=== PATIENT | male | born 1990 | race Caucasian/White ===

== ENCOUNTER 2022-03-26 04:48 | Emergency (ER) | payer OTHER, SELFPAY ==
[2022-03-26 04:50] VITALS: BP 159/90; PULSE 85; RESP 18; TEMP 35.9; O2SAT 99; BMI 27.9
[2022-03-26 05:46] LABS: Mucous, Urine 0 SEEN /hpf (<or=2+); Red Blood Cells-Urine 0 SEEN /hpf (0-5); Squamous Epithelial Cells - UA 0 SEEN /hpf (0-5)
[2022-03-26 05:55] LABS: Color, Urine Yellow (Yellow); Glucose, Dipstick Normal (Normal); Leukocyte Esterase-Dipstick 25 /ul (Negative); Nitrite-Dipstick Negative (Negative); Occult Blood-Urine 25 /ul (Negative); Protein-Dipstick 30 mg/dl (Negative); Specific Gravity, Urine 1.025 (1.002-1.030); Urine Bilirubin Dipstick Negative (Negative); Urine Clarity Clear (Clear); Urine Urobilinogen Normal (Normal)
[2022-03-26 06:08] LABS: Ketone-Dipstick 150 mg/dl (Negative)
[2022-03-26 06:18] LABS: Bacteria RARE /hpf (None Seen); White Blood Cells 0-5 SEEN /hpf (0-5)
--- NOTE | 2022-03-26 06:31 | EDS_ITS ---
HPI History of Present Illness Chief Complaint: Other, Pain/Inj Narrative Narrative: Patient is a 32-year-old male with no reported significant past medical history. He reports for the past 2 weeks he has been having pain located mainly in his rectum. He states he has been pain with defecation but he denies any rectal discharge or dysuria. He states he does not have any fevers or chills. He states that he was able to control the pain initially with just a little bit of ibuprofen once a day but over the past few days the pain has been increasing and secondary to this he comes in for evaluation. PFSH PFSH Medical History no medical history no medical history Home Medications oxycodone-acetaminophen 5 mg-325 mg tablet (Percocet) 1 tab PO Q6H PRN pain 3 days #12 tabs 03/26/22 [Rx Last Taken Unknown] sulfamethoxazole 800 mg-trimethoprim 160 mg tablet (Bactrim DS) 1 tab PO BID 28 days #56 tabs 03/26/22 [Rx Last Taken Unknown] Allergy/AdvReac Type Severity Reaction Status Date / Time No Known Allergies Allergy Verified 03/26/22 06:37 Surgical History no surgical history Social History Smoking Status: Never smoker [facility] ED Constitutional Constitutional ED: Denies chills or fever(s) ENT ENT ED: Denies sore throat Cardiovascular Cardiovascular: Denies chest pain Respiratory/Chest Respiratory/Chest: Denies cough or dyspnea Gastrointestinal Gastrointestinal: Denies abdominal pain, diarrhea, nausea or vomiting Genitourinary Genitourinary ED: Reports other Details: Positive rectal pain ; Denies dysuria or urinary frequency Musculoskeletal Musculoskeletal: Denies myalgias Integumentary Denies rash Neurologic Neurologic: Denies headache(s) Hematologic/Lymphatic Hematologic/Lymphatic: Denies easy bleeding or easy bruising EXAM Physical Exam Const Vital Signs: 03/26/22 04:50 Temperature 96.6 F L Temperature Source Oral Pulse Rate 85 Respiratory Rate 18 Blood Pressure 159/90 H Blood Pressure Mean 113 Pulse Ox 99 Oxygen Delivery Method Room Air Positive well nourished and well developed General Appearance ED: well developed Eyes PERRL and EOMs intact bilaterally Neck supple Resp normal respiratory effort and clear to auscultation bilaterally Cardio regular rate and regular rhythm GI non-distended GI Narrative: There is mild suprapubic tenderness with palpation noted without voluntary guarding or rigidity Auscultation: normoactive bowel sounds Palpation: soft Narrative: No external hemorrhoid or anal fissure noted. Rectal tone is normal. No internal abscess or hemorrhoid noted either. There is pain on palpation of the prostate and he does feel boggy in nature. No rectal discharge noted Extremity normal to inspection Neuro oriented x3 and CN's II-XII intact bilaterally Sensorium / Orientation: alert Psych mental status grossly normal Skin no rashes or lesions noted Skin Narrative: No obvious abscess or cellulitis noted along the gluteal tissue or rectal exam MDM MDM MDM Narrative Medical decision making narrative: Patient presented to the ER hypertensive but otherwise afebrile stable vitals. He reported pain in his rectum for the past 2 weeks which was slowly worsening. He denies any discharge but there was pain with defecation. On exam he does not have an external or internal hemorrhoid there is no anal fissure and no physical exam changes to suggest a perirectal abscess. He does have pain with palpation of his prostate and does feel enlarged and boggy. His urine shows some blood and leukocyte esterase concerning for developing prostate infection. Therefore at this time he will be placed on the 28-day course of Bactrim and can follow-up with urology. Patient agrees to return if he has worsening symptoms or any further concerns Lab Data Attestation: I reviewed the patient's lab results. Labs: Laboratory Results - last 24 hr 03/26/22 05:40 Urine Color Yellow Urine Clarity Clear Urine pH 6.0 Ur Specific [place] 1.025 Urine Protein 30 H Urine Glucose (UA) Normal Urine Ketones 150 A* Urine Occult Blood 25 H Urine Nitrite Negative Urine Bilirubin Negative Urine Urobilinogen Normal Ur Leukocyte Esterase 25 H Urine RBC 0 SEEN Urine WBC 0-5 SEEN Ur Squamous Epith Cells 0 SEEN Urine Bacteria RARE Urine Mucus 0 SEEN Discharge Plan Triage Chief Complaint: Other, Pain/Inj ED Provider: Erickson Lagunas Dx/Rx/DC Orders Clinical Impression: Acute prostatitis Instructions: ED Prostatitis Prescriptions: New sulfamethoxazole-trimethoprim [Bactrim DS] 800-160 mg tablet 1 tab PO BID 28 Days Qty: 56 0RF oxycodone-acetaminophen [Percocet] 5-325 mg tablet 1 tab PO Q6H PRN (Reason: pain) 3 Days Qty: 12 0RF Primary Care Provider: Care Physician,No Primary Referrals: Scott Brand MD [Med Staff - Active Staff] - Care Physician,No Primary [Primary Care Provider] - Activity Restrictions/Additional Instructions: Your history and exam today are most consistent with prostatitis. Take the medication as directed and follow-up with urology if you have any further concerns or worsening of symptoms please return to the ER for repeat evaluation Disposition Disposition: Home, Self Care
[2022-03-26] MEDS: oxyCODONE 5 MG Tablet 10 MG PO (06:35)
[2022-03-26] MEDS: Smz/Tmp Ds Tablet 1 TABLET PO (06:35)
[2022-03-26 06:41] VITALS: RESP 16
== END 2022-03-26 06:41 | disposition home or self-care (01) ==
PROVIDERS: Emergency Provider Emergency Medicine; Visit Provider Emergency Medicine
DX: N41.9 Inflammatory disease of prostate, unspecified (principal); K62.89 Other specified diseases of anus and rectum
CPT/HCPCS: 81001; 99282

== ENCOUNTER 2022-03-27 15:19 | Emergency (ER) | payer SELFPAY ==
[2022-03-27 15:20] VITALS: BP 136/89; PULSE 97; RESP 18; TEMP 36.6; O2SAT 99; BMI 28.7
[2022-03-27 15:22] VITALS: BP 136/89; PULSE 97; RESP 18; TEMP 36.6; O2SAT 99
--- NOTE | 2022-03-27 15:42 | CT_ITS ---
STUDY: CT PELVIS WITH CONTRAST REASON FOR EXAM: Male, 32 years old. left barry-rectal abscess or cyst RADIATION DOSAGE (If Supplied By Facility): CTDIvol = ( ) mGy, DLP = ( ) mGycm TECHNIQUE: Transaxial imaging of the pelvis was performed without oral contrast. IV 100mL Isovue-370 was administered intravenously. Individualized dose optimization techniques were used for this CT. COMPARISON: None. FINDINGS: Normal urinary bladder. Normal visualized small intestine. Normal visualized colon. 3 cm thick-walled the fluid collection within the medial aspect of the left buttock adjacent to the anus consistent with a perirectal abscess. There is no pelvic fluid. There is no pelvic lymphadenopathy or mass lesion. Normal visualized pelvic arteries. Normal abdominal wall. Normal osseous structures. CT/Pelvis WITH IV Contrast IMPRESSION: 3 cm left-sided perirectal abscess. Electronically Signed: Russell Costello MD at 17:04 EST ,
--- NOTE | 2022-03-27 15:44 | EDS_ITS ---
HPI History of Present Illness Chief Complaint: Other, Pain/Inj Detail of Chief Complaint: Left buttock and perirectal pain Informant: patient Onset/Context/Timing Onset: Days and Weeks Context: Gradual Onset Timing: Continuous Current Severity: Moderate Maximum Severity: Moderate Narrative Narrative: 32-year-old male no significant past medical history. Said for 1 to 2 weeks he has had pain near his buttocks. And rectum. Seen the emergency department in light of 03/26 thought possibly to have prostatitis. And started on Bactrim for 2 weeks. States now he has noticed Left buttock and shanell-anal pain. Denies any fever. No dysuria. He did have a pilonidal abscess years ago that ruptured on its own. He is not diabetic. Prior similar symptoms: Yes Recent Illness/Hospitalization: No PFSH PFSH Medical History no medical history no medical history Home Medications oxycodone-acetaminophen 5 mg-325 mg tablet (Percocet) 1 tab PO Q6H PRN pain 3 days #12 tabs 03/26/22 [Rx Last Taken Unknown] sulfamethoxazole 800 mg-trimethoprim 160 mg tablet (Bactrim DS) 1 tab PO BID 28 days #56 tabs 03/26/22 [Rx Last Taken Unknown] cephalexin 500 mg capsule 500 mg PO Q6 #40 caps 03/27/22 [Rx Last Taken Unknown] Allergy/AdvReac Type Severity Reaction Status Date / Time No Known Allergies Allergy Verified 03/27/22 15:19 Social History Smoking Status: Never smoker ROS ROS ED ROS Narrative Left buttock and perirectal pain. Review of Systems ROS Unobtainable: Denies due to encephalopathy Constitutional Constitutional ED: Denies fever(s) Eyes Eyes: Denies blurry vision ENT ENT ED: Denies ear pain Cardiovascular Cardiovascular: Denies chest pain Respiratory/Chest Respiratory/Chest: Denies cough or dyspnea Gastrointestinal Gastrointestinal: Denies abdominal pain, constipation, diarrhea, melena, nausea or vomiting Genitourinary Genitourinary ED: Denies dysuria or hematuria Musculoskeletal Musculoskeletal: Denies arthralgias Integumentary Reports other Details: Perianal pain on the left Neurologic Neurologic: Denies headache(s) Psychiatric Psychiatric: Denies anxiety or depression Endocrine Endocrinology: Denies cold intolerance Hematologic/Lymphatic Hematologic/Lymphatic: Reports none Allergic/Immunologic Allergic/Immunologic ED: Denies mouth swelling or tongue swelling EXAM Physical Exam Narrative Exam Narrative: 32-year-old male no acute distress. Vital signs stable afebrile. He does not look septic or toxic. H EENT exam unremarkable. Lungs clear to auscultation. Heart regular rhythm no murmur. Abdomen soft nontender. Normal bowel sounds no peritoneal signs. Buttock exam he is got a fullness tenderness to his left perianal area that could be a perianal abscess or cyst. On rectal exam he is got no rectal tenderness or prostate tenderness. I do not think this is prostatitis which was previously thought on another exam. Moving all 4 extremities. Neurologic exam normal. Const Vital Signs: 03/27/22 15:20 03/27/22 15:22 03/27/22 15:51 Temperature 98 F 98 F Temperature Source Temporal Temporal Pulse Rate 97 97 Respiratory Rate 18 18 Respiratory Effort Normal Non-Labored Respiratory Pattern Normal Blood Pressure 136/89 H 136/89 H Blood Pressure Mean 104 104 Pulse Ox 99 99 Oxygen Delivery Method Room Air Room Air 03/27/22 16:22 Temperature 98.2 F Temperature Source Temporal Pulse Rate 89 Respiratory Rate 16 Respiratory Effort Respiratory Pattern Blood Pressure 138/88 H Blood Pressure Mean 104 Pulse Ox 98 Oxygen Delivery Method Room Air Positive well nourished and well developed; Negative for obese, cachectic, contractures or unkempt General Appearance ED: well developed and NAD; Negative for unkempt, cachectic, contractures, cyanotic or diaphoretic Nutritional Appearance: Negative for cachectic or obese HEENT Reports moist mucous membranes; Denies dry mucous membranes Negative for trauma or tenderness Mouth ED: No dry mucous membranes Mouth: No dry mucous membranes Eyes PERRL and EOMs intact bilaterally General Eye ED: Negative for pale conjunctiva or scleral icterus Neck no lymphadenopathy, supple and no JVD General: Negative for tenderness Lymph Lymphatic: Negative for other Chest Wall inspection of chest normal and palpation of chest normal Chest: Negative for other Resp normal respiratory effort and clear to auscultation bilaterally Effort and Inspection: Negative for retractions Auscultation: Negative for rales, rhonchi or wheezes Cardio regular rate, regular rhythm, S1 normal heart sound, S2 normal heart sound and no murmurs Palpation: Negative for palpable S3 Rate: Negative for bradycardia Rhythm: Negative for abnormal rhythm GI normal to inspection, nondistended, normoactive bowel sounds, non-tender, non- distended and no masses Inspection: Negative for abdominal distention Auscultation: normoactive bowel sounds; Negative for hyperactive bowel sounds Palpation: soft; Negative for tender or guarding Rectal Exam: normal sphincter tone, prostate normal, tenderness and other Other Details: Left very medial buttock perianal tenderness. Consistent with either perianal abscess or cyst. Prostate is nontender. The rectum is nontender. Back/Spine no CVA tenderness General Back: Negative for CVA tenderness Cervical Spine: Negative for cervical spine tenderness Thoracic Spine / Upper Back: Negative for thoracic spinal tenderness Lumbar Spine / Lower Back: Negative for lumbar spinal tenderness Extremity normal to inspection General Extremety ED: Negative for edema or tenderness General Extremity: Negative for edema Neuro oriented x3 and CN's II-XII intact bilaterally Sensorium / Orientation: alert; Negative for orientation impaired, lethargic or stuporous Motor Exam: strength 5/5 throughout; Negative for general weakness Psych mental status grossly normal Appearance: Negative for unkempt Attitude: No agitated Mood & Affect: Negative for depressed, anxious or tearful Skin no rashes or lesions noted, no wounds and skin turgor normal Lesions: No lesion noted Rashes: No rashes noted Trauma: Negative for abrasion Wounds: Negative for wounds noted MDM MDM MDM Narrative Medical decision making narrative: 32-year-old male concern for a possible left perianal abscess or cyst. CAT scan being obtained and labs. Discussed with general surgeon on-call Dr. Racheal Huitron. She requested I incised and drained the abscess. She would see him in follow-up in the office. Patient was started on oral antibiotics. Procedure: Left buttock. Anal abscess. Let was applied to the wound. Locally anesthetized with lidocaine. Improper insect was obtained and made about a centimeter horizontal incision. Was able to express 3 cc of pus. The abscess drastically decreased all that was left was inflamed tissue. Again there was no tracking along the rectum. Patient was much improved. The cavity was small and is unable to place packing gauze. Patient tolerated procedure well. He was instructed on warm soaks. Tylenol Motrin for pain. He has pain medication at home. He will be placed on Keflex 1 pill 4 times a day for 10 days. Along with his current Bactrim for 10 days. Call and follow-up with Dr. Racheal Huitron. Return if fever or feeling worse. His labs are unremarkable. Lab Data Attestation: I reviewed the patient's lab results. Lab results narrative: TCBC normal white count 8.2. H&H 14 and 42. Electrolytes unremarkable gap of 5 normal BUN of 12 creatinine 0.9. Glucose 111. Pelvis with IV contrast showed a 3 cm left-sided perirectal abscess. Labs: Laboratory Results - last 24 hr 03/27/22 03/27/22 15:55 15:55 WBC 8.2 RBC 4.85 Hgb 14.9 Hct 42.4 MCV 87.4 MCH 30.7 MCHC 35.1 RDW Std Deviation 38.6 RDW Coeff of Marib[place] 12.0 Plt Count 252 MPV 9.8 Immature Gran % (Auto) 0.600 Neut % (Auto) 64.7 Lymph % (Auto) 22.1 [place] % (Auto) 11.2 H Eos % (Auto) 0.9 Baso % (Auto) 0.5 Absolute Neuts (auto) 5.3 Absolute Lymphs (auto) 1.81 Nucleated RBC % 0 Sodium 138 Potassium 3.8 Chloride 106 Carbon Dioxide 27.0 Anion Gap 5 BUN 12 Creatinine 0.97 Estim Creat Clear Calc 110.80 Est GFR (MDRD) Af Amer 114 Est GFR (MDRD) Non-Af 94 BUN/Creatinine Ratio 12.4 Glucose 111 H Calcium 8.8 Radiography Diagnostic Testing: Clinical Impression(s) from Imaging Studies Pelvis CT 03/27/22 15:42 IMPRESSION: 3 cm left-sided perirectal abscess. Electronically Signed: Russell Costello MD at 17:04 EST , Procedures Other Procedures Procedure(s): Left buttock, perirectal, abscess. Incision and drainage. Let. Cleaned with iodine. Local anesthetized with lidocaine. 1 cm incision. Expressed 2 to 3 cc of pus. Patient tolerated procedure well. Instructed on wound care and follow-up. Discharge Plan Triage Chief Complaint: Other, Pain/Inj ED Provider: Malcom Navarro Dx/Rx/DC Orders Clinical Impression: Abscess, perirectal Instructions: ED ABSCESS Shanell-Anal IandD Prescriptions: New cephalexin 500 mg capsule 500 mg PO Q6 Qty: 40 0RF No Action sulfamethoxazole-trimethoprim [Bactrim DS] 800-160 mg tablet 1 tab PO BID 28 Days Qty: 56 0RF oxycodone-acetaminophen [Percocet] 5-325 mg tablet 1 tab PO Q6H PRN (Reason: pain) 3 Days Qty: 12 0RF Primary Care Provider: Care Physician,No Primary Referrals: Racheal Huitron MD [Med Staff - Active Staff] - As soon as possible Care Physician,No Primary [Primary Care Provider] - Activity Restrictions/Additional Instructions: This is not prostatitis. This is a perirectal abscess. We incised and drained it. It should progressively improve. Use both antibiotics and the Bactrim which you are already on and the Keflex and placing you on. The Bactrim will be twice a day for the next 10 days. The Keflex will be 4 times a day for the next 10 days. Sit in warm bath water for 20 to 30 minutes once or twice a day. Call and follow-up with Dr. Racheal Huitron's office on Tuesday to see think itchiness week for follow-up. Motrin and Tylenol for pain. You may also finish the pain medication you are previously prescribed. Return if you are feeling a lot worse, fever or worsening pain. The pain should progressively improve. Disposition Disposition: Home, Self Care
[2022-03-27 16:15] LABS: Absolute Lymphocyte Count 1.81 X10^3/uL (0.83-4.51); Absolute Neutrophil Count 5.3 X10^3/uL (2.0-7.7); Anion Gap 5 (5-15); BUN 12 mg/dL (7-18); BUN/Creat Ratio 12.4 RATIO (10-20); Basophil# 0.04 X10^3/uL; Basophil% 0.5 % (0-1); Calcium,Total 8.8 mg/dL (8.5-10.1); Chloride 106 mmol/L (98-107); Creatinine, Serum 0.97 mg/dL (0.70-1.30); EST Glomerular Filtration Rate 94 mL/min (>60); Eosinophil# 0.07 X10^3/uL; Eosinophils% 0.9 % (0-5); Est Glom Filt Rate - Afr Amer 114 mL/min (>60); Glucose 111 mg/dL (74-106); Hematocrit 42.4 % (40-54); Hemoglobin 14.9 g/dL (13.0-16.5); Lymphocyte # 1.81 X10^3/ul (0.83-4.51); Lymphocyte % 22.1 % (19-41); Mean Corp Hgb Conc 35.1 g/dL (32-36); Mean Corpuscular Hgb 30.7 pg (27.0-32.0); Mean Corpuscular Volume 87.4 fL (80-94); Mean Platelet Vol. 9.8 fl (6.2-12.0); Monocyte# 0.92 X10^3/uL; Monocyte% 11.2 % (0-10); NRBC Flagged by Analyzer 0 % (0-5); Neutrophil % 64.7 % (47-70); Platelet Count 252 K/mm3 (150-450); Potassium 3.8 mmol/L (3.5-5.1); RBC Distribution Width SD 38.6 fl (35.1-43.9); Red Blood Count 4.85 M/mm3 (4.6-6.2); Sodium Level 138 mmol/L (136-145); White Blood Count 8.2 K/mm3 (4.4-11.0)
[2022-03-27 16:22] VITALS: BP 138/88; PULSE 89; RESP 16; TEMP 36.8; O2SAT 98
[2022-03-27] MEDS: Lidocaine/Epi/Tetracaine 50 ML 1 APPLIC TOPICAL (17:48)
[2022-03-27] MEDS: Cephalexin 250 MG Capsule 500 MG PO (20:12)
[2022-03-27] MEDS: Lidocaine 1% (20 ml mdv) 20 ML Vial 10 ML INFILT (20:12)
[2022-03-27 20:15] VITALS: BP 128/65; PULSE 69; RESP 16; O2SAT 100
== END 2022-03-27 20:17 | disposition home or self-care (01) ==
PROVIDERS: Emergency Provider Emergency Medicine; Visit Provider Emergency Medicine
DX: K61.1 Rectal abscess (principal)
CPT/HCPCS: 10060; 72193; 80048; 85025; 99283; Q9967; A4216

== ENCOUNTER 2023-01-21 14:00 | Emergency (ER) | payer OTHER, SELFPAY ==
[2023-01-21 14:04] VITALS: BP 139/102; PULSE 100; RESP 18; TEMP 36.6; O2SAT 98; BMI 28.0
[2023-01-21 15:26] LABS: Bacteria 0 SEEN /hpf (None Seen); Mucous, Urine 0 SEEN /hpf (<or=2+); Red Blood Cells-Urine 0 SEEN /hpf (0-5); Squamous Epithelial Cells - UA 0 SEEN /hpf (0-5); White Blood Cells 0 SEEN /hpf (0-5)
[2023-01-21 15:36] LABS: Color, Urine Yellow (Yellow); Glucose, Dipstick Normal (Normal); Ketone-Dipstick Negative (Negative); Leukocyte Esterase-Dipstick Negative /ul (Negative); Nitrite-Dipstick Negative (Negative); Occult Blood-Urine Negative /ul (Negative); Protein-Dipstick Negative (Negative); Urine Bilirubin Dipstick Negative (Negative); Urine Clarity Clear (Clear); Urine Urobilinogen Normal (Normal); Urine pH 6.5 (5.0 - 8.0)
--- NOTE | 2023-01-21 16:13 | EX.ED.GUMALE ---
HPI History of Present Illness Chief Complaint: Complaint Narrative Narrative: 32-year-old male presenting with concern for prostate issues. He states he is having trouble with what he believes is urinary retention. He googled some things and believes that he has an enlarged prostate. He has health insurance but no primary provider. He states that to get follow-up with her primary provider would be months so we did make an appointment. He just wanted to be seen. He has some mild dysuria. No sex or concern for STD. he feels generally well. He feels like he might have a partially full bladder. PFSH PFSH Medical History no medical history Home Medications tamsulosin 0.4 mg capsule (Flomax) 0.4 mg PO DAILY #30 caps 01/21/23 [Rx Last Taken Unknown] Allergy/AdvReac Type Severity Reaction Status Date / Time No Known Allergies Allergy Verified 01/21/23 14:03 Surgical History no surgical history Social History Smoking Status: Never smoker ROS ROS ED Constitutional Constitutional ED: Denies chills, fever(s) or sweats Eyes Eyes: Denies blurry vision or change in vision ENT ENT ED: Denies ear pain or sore throat Cardiovascular Cardiovascular: Denies chest pain, palpitations or racing heartbeat Respiratory/Chest Respiratory/Chest: Denies cough, dyspnea or sputum Gastrointestinal Gastrointestinal: Denies abdominal pain, constipation, diarrhea, nausea or vomiting Genitourinary Genitourinary ED: Reports dysuria and other Details: Complete bladder and ; Denies hematuria or urinary frequency Musculoskeletal Musculoskeletal: Denies arthralgias, myalgias or neck pain Integumentary Denies abscess, Abrasions or rash Neurologic Neurologic: Denies headache(s), paresthesias or weakness Psychiatric Psychiatric: Denies anxiety, depression, suicidal ideation or suicidal thoughts Endocrine Endocrinology: Denies polydipsia or polyuria EXAM Physical Exam Const Vital Signs: 01/21/23 14:04 Temperature 97.9 F Temperature Source Temporal Pulse Rate 100 Respiratory Rate 18 Blood Pressure 139/102 H Blood Pressure Mean 114 Pulse Ox 98 Oxygen Delivery Method Room Air Positive well nourished General Appearance ED: NAD HEENT Reports moist mucous membranes Eyes PERRL and EOMs intact bilaterally Resp normal respiratory effort Effort and Inspection: Negative for retractions Cardio regular rate and regular rhythm GI non-tender no CVA tenderness Extremity normal to inspection General Extremety ED: Yes edema General Extremity: edema Neuro oriented x3 and CN's II-XII intact bilaterally Sensorium / Orientation: alert Psych mental status grossly normal MDM MDM MDM Narrative Medical decision making narrative: Presenting with concern for enlarged prostate. Urinalysis obtained was negative for any abnormalities. Bladder scan will be obtained. Patient will be started on Flomax. He is given follow-up with urology. Impression: 1. Dysuria 2. Urinary retention Lab Data Attestation: I reviewed the patient's lab results. Labs: Laboratory Results - last 24 hr 01/21/23 13:15 Urine Color Yellow Urine Clarity Clear Urine pH 6.5 Ur Specific [place] 1.010 Urine Protein Negative Urine Glucose (UA) Normal Urine Ketones Negative Urine Occult Blood Negative Urine Nitrite Negative Urine Bilirubin Negative Urine Urobilinogen Normal Ur Leukocyte Esterase Negative Urine RBC 0 SEEN Urine WBC 0 SEEN Ur Squamous Epith Cells 0 SEEN Urine Bacteria 0 SEEN Urine Mucus 0 SEEN Discharge Plan Triage Chief Complaint: Complaint ED Provider: Hang Barron Dx/Rx/DC Orders Instructions: ED Dysuria, Uncertain Cause (Adult) Prescriptions: New tamsulosin [Flomax] 0.4 mg capsule 0.4 mg PO DAILY Qty: 30 0RF Primary Care Provider: Care Physician,No Primary Referrals: Scott Brand MD [Med Staff - Active Staff] - 3-5 Days Care Physician,No Primary [Primary Care Provider] - Disposition Disposition: Home, Self Care
[2023-01-21] MEDS: Tamsulosin HCl 0.4 MG Capsule PO (16:46)
== END 2023-01-21 16:48 | disposition home or self-care (01) ==
PROVIDERS: Emergency Provider Student in an Organized Health Care Education/Training Program; Visit Provider Student in an Organized Health Care Education/Training Program
DX: R33.9 Retention of urine, unspecified (principal); R30.0 Dysuria
CPT/HCPCS: 81001; 99282